=== PATIENT | male | born 1960 ===

== ENCOUNTER 2017-01-20 08:55 | Emergency (ER) | payer MEDICAID ==
[2017-01-20 09:03] VITALS: BMI 27.4
[2017-01-20 09:19] VITALS: O2SAT 98
[2017-01-20] MEDS ORDERED: Insulin Regular 100 units/ml IVP ONE ×3 (09:36→14:10)
[2017-01-20] MEDS ORDERED: Sodium Chloride 0.9% 1,000 ML IV STA ×2 (09:36→14:10)
[2017-01-20] MEDS ORDERED: Insulin Regular 100 units/ml ONE ×3 (09:40→14:49)
--- NOTE | 2017-01-20 10:02 | ED PDOC ---
HPI: General Adult Time Seen by Provider: 01/20/17 09:15 Chief Complaint (Nursing): Dizziness/Lightheaded Chief Complaint (Provider): dizzy, i think my sugar is high History Per: Patient, Manager User Interface (Indemand) History/Exam Limitations: no limitations Current Symptoms Are (Timing): Still Present Severity: Moderate Similar Symptoms Previously: + Recent Trauma: denies Additional Complaint(s): 56yo male c/o dizziness and concern his sugar is high. He does not check his glucose at home, states partially compliant w pills and insulin although doesnt know his dose. Poor historian. Denies fever, focal weakness, dysuria or headache. Past Medical History Reviewed: Historical Data, Nursing Documentation, Vital Signs Vital Signs: Last Vital Signs Temp 98 F 01/20/17 17:10 Pulse 74 01/20/17 17:10 Resp 20 01/20/17 17:10 BP 110/70 01/20/17 17:10 Pulse Ox 98 01/20/17 17:10 - Medical History PMH: Diabetes, HTN - Surgical History Surgical History: No Surg Hx - Family History Family History: States: Unknown Family Hx - Social History Current smoker - smoking cessation education provided: No Drugs: Denies - Home Medications Home Medications: Ambulatory Orders Medication Instructions Recorded Aspirin [Ecotrin] 81 mg PO DAILY 01/20/17 Canagliflozin/Metformin HCl 1 tab PO BID 01/20/17 [Invokamet 150-1,000 mg Tablet] Fenofibrate [Lofibra] 160 mg PO DAILY 01/20/17 Lisinopril [Zestril] 5 mg PO DAILY 01/20/17 Simvastatin [Simvastatin] 5 mg PO HS 01/20/17 metFORMIN [glucOPHAGE] 500 mg PO BID 01/20/17 - Allergies Allergies/Adverse Reactions: Allergies Allergy/AdvReac Type Severity Reaction Status Date / Time No Known Allergies Allergy Verified 12/05/16 12:35 Review of Systems Constitutional: Positive for: Weakness, Malaise ENT: Negative for: Ear Discharge, Throat Pain Cardiovascular: Positive for: Chest Pain, Light Headedness Respiratory: Negative for: Cough, Shortness of Breath Gastrointestinal: Negative for: Nausea, Vomiting Genitourinary Male: Negative for: Dysuria, Frequency Musculoskeletal: Negative for: Neck Pain, Shoulder Pain Skin: Negative for: Rash, Lesions, Jaundice Neurological: Negative for: Weakness, Numbness Physical Exam - Reviewed Nursing Documentation Reviewed: Yes Vital Signs Reviewed: Yes - Physical Exam Appears: Positive for: Well, Non-toxic, No Acute Distress Head Exam: Positive for: ATRAUMATIC, NORMAL INSPECTION, NORMOCEPHALIC Skin: Positive for: Normal Color, Warm, DRY Eye Exam: Positive for: EOMI, Normal appearance, PERRL ENT: Positive for: Normal ENT Inspection Neck: Positive for: Normal, Painless ROM Cardiovascular/Chest: Positive for: Regular Rate, Rhythm Respiratory: Positive for: CNT, Normal Breath Sounds Pulses-Radial (L): 2+ Pulses-Radial (R): 2+ Gastrointestinal/Abdominal: Positive for: Bowel Sounds, Soft, Tenderness (mild diffuse). Negative for: Guarding, Rebound Back: Positive for: Normal Inspection Extremity: Positive for: Normal ROM, Other (myalgias) Neurologic/Psych: Positive for: Alert, Oriented, Other (poor cognition). Negative for: Motor/Sensory Deficits, Aphasia - Laboratory Results Result Diagrams: 01/20/17 10:15 01/20/17 10:15 - ECG O2 Sat by Pulse Oximetry: 98 Medical Decision Making Medical Decision Making: glucose elevated but no signs DKA. Hyperglycemia treated in ED with multiple rounds of IVF and insulin therapy. Medications reviewed extensively w patient, in bengali, with instructions on followup and indications for return to ER. Disposition - Clinical Impression Clinical Impression: Dizziness, Hyperglycemia - Patient ED Disposition Is Patient to be Admitted: No Counseled Patient/Family Regarding: Studies Performed, Diagnosis, Need For Followup, Rx Given - Disposition Referrals: [facility] [Outside] Disposition Time: 15:00 Condition: STABLE Additional Instructions: Increase metformin to 1000mg 2x daily. See clinic for further testing. Instructions: Diabetic Hyperglycemia (ED) Print Language: KENYAN - POChrissie Present On Arrival: Poor Glycemic Control
[2017-01-20 10:34] LABS: BASO # 0.1 K/uL (0.0-0.2); BASO % 1.1 % (0.0-2.0); EOS % 15.1 % (0.0-4.0); HEMATOCRIT 39.7 % (35.0-51.0); LYMPH # 1.7 K/uL (1.0-4.3); LYMPH % 25.1 % (20.0-40.0); MEAN CELL VOLUME 93.8 fl (80.0-94.0); MEAN CORPUSCULAR HEMOGLOBIN 31.1 pg (27.0-31.0); MEAN CORPUSCULAR HGB CONC 33.2 g/dL (33.0-37.0); MEAN PLATELET VOLUME 9.2 fl (7.2-11.7); MONO # 0.6 K/uL (0.0-0.8); MONO % 8.8 % (0.0-10.0); NEUT # 3.3 K/uL (1.8-7.0); NEUT % 49.9 % (50.0-75.0); NRBC % 0.1 % (0.0-0.0); RED CELL DISTRIBUTION WIDTH 13.4 % (11.5-14.5); WHITE BLOOD COUNT 6.7 K/uL (4.8-10.8)
[2017-01-20 10:41] LABS: ALB/GLOB RATIO 1.1 (1.0-2.1); ALKALINE PHOSPHATASE 147 U/L (38-126); ALT/SGPT 36 U/L (21-72); AST/SGOT 25 U/L (17-59); BILIRUBIN,TOTAL 1.2 mg/dl (0.2-1.3); BLOOD UREA NITROGEN 14 mg/dl (9-20); CALCIUM 9.1 mg/dL (8.4-10.2); CARBON DIOXIDE 23 mmol/L (22-30); CHLORIDE 96 mmol/L (98-107); GFR AFRICAN-AMERICAN > 60; POTASSIUM 4.3 MMOL/L (3.6-5.0); SODIUM 135 mmol/l (132-148); TOTAL PROTEIN 7.4 G/DL (6.3-8.2)
[2017-01-20 10:50] LABS: GLUCOSE,RANDOM 423 mg/dL (75-110)
[2017-01-20 16:30] LABS: RBC URINE 2 /hpf (0-3); URINE BACTERIA RARE (<OCC); URINE BILIRUBIN NEGATIVE (NEGATIVE); URINE COLOR STRAW (YELLOW); URINE GLUCOSE (UA) >=500 mg/dL (Normal); URINE KETONE 80 mg/dL (NEGATIVE); URINE LEUKOCYTE ESTERASE NEG Leu/uL (Negative); URINE PROTEIN 30 mg/dL (NEGATIVE); URINE UROBILINOGEN 0.2-1.0 mg/dL (0.2-1.0); WBC URINE 1 /hpf (0-5)
[2017-01-20 16:35] LABS: URINE BLOOD NEGATIVE (NEGATIVE)
--- NOTE | 2017-01-20 17:12 | CARD ---
APPROVED REPORT EKG Measurement Heart [id number] 166P5 [id number] <Conclusion> Normal sinus rhythm Normal ECG
[2017-01-20 17:38] VITALS: BP 110/70; PULSE 74; RESP 20; TEMP 98
== END 2017-01-20 17:39 | disposition home or self-care (01) ==
LOC: H.ER 08:55
DX: R42 Dizziness and giddiness (principal); E11.65 Type 2 diabetes mellitus with hyperglycemia; I10 Essential (primary) hypertension; Z79.82 Long term (current) use of aspirin; Z79.84 Long term (current) use of oral hypoglycemic drugs

== ENCOUNTER 2017-03-09 13:38 | Emergency (ER) | payer MEDICAID ==
[2017-03-09 13:38] VITALS: BMI 27.4
[2017-03-09 14:04] VITALS: TEMP 98
[2017-03-09] MEDS ORDERED: Sodium Chloride 0.9% 1,000 ML IV STA (14:39)
--- NOTE | 2017-03-09 14:56 | ED PDOC ---
ATTENTION PHYSICIANS Hyperglycemia/Hypoglycemia Chief Complaint (Provider): High Blood Glucose History Per: Patient History/Exam Limitations: no limitations Onset/Duration Of Symptoms: Days Current Symptoms Are (Timing): Still Present Current Diabetic Medications: Insulin, Oral Medication (metformin 1000 BID) Causative (Exacerbating) Factor(s): Missed Taking Medication (for weeks) Associated Infectious Symptoms: denies: Cough, Sore Throat, Sinus Congestion, Dysuria, Urinary Urgency, Nausea, Vomiting, Diarrhea : The patient does not have any of the infectious symptoms listed except for those marked. Treatment Prior To Provider Evaluation: None Additional Complaint(s): 56 yo M w PMHx of DM2, HLD presents to ER w uncontrolled diabetes. Pt states he continues to take his Metformin and other oral medications, but has refused to take any insulin over previous few weeks because he doesn't like injections. He has no problems getting his medications, as he actually carried all of his unused insulin with him. Pt states polyuria and polydypsia, but denies any fevers/chills, n/v/d/c, headaches, recent vision changes, SOB, dyspnea, cough, abdominal pain, hematuria, dysuria, or other myalgias. <Rafael Emmanuel - Last Filed: 03/09/17 16:02> : The patient does not have any of the infectious symptoms listed except for those marked. Additional Complaint(s): No chest pains. Sent from clinic as blood sugar high. <Mina Anderson M - Last Filed: 03/09/17 18:39> Time Seen by Provider: 03/09/17 14:11 Chief Complaint (Nursing): High Blood Sugar Past Medical History Vital Signs: Last Vital Signs Temp 98.0 F 03/09/17 14:01 Pulse 70 03/09/17 14:01 Resp 16 03/09/17 14:01 BP 109/67 03/09/17 14:01 Pulse Ox 100 03/09/17 14:01 - Medical History PMH: Diabetes, HTN - Family History Family History: States: Unknown Family Hx <Rafael Emmanuel - Last Filed: 03/09/17 16:02> Vital Signs: Last Vital Signs Temp 98.0 F 03/09/17 14:01 Pulse 70 03/09/17 14:01 Resp 16 03/09/17 14:01 BP 109/67 03/09/17 14:01 Pulse Ox 100 03/09/17 16:06 <Mina Anderson M - Last Filed: 03/09/17 18:39> - Home Medications Home Medications: Ambulatory Orders Medication Instructions Recorded Aspirin [Ecotrin] 81 mg PO DAILY 03/09/17 Fenofibrate [Triglide] 160 mg PO DAILY 03/09/17 Insulin Detemir [Levemir] 15 unit SC HS 03/09/17 Liraglutide [Victoza 3-Evan] 1.8 mg SC DAILY 03/09/17 Lisinopril [Zestril] 5 mg PO DAILY 03/09/17 Metformin HCl [Glucophage] 1,000 mg PO BID 03/09/17 Simethicone [Bicarsim] 80 mg PO QID PRN 03/09/17 - Allergies Allergies/Adverse Reactions: Allergies Allergy/AdvReac Type Severity Reaction Status Date / Time No Known Allergies Allergy Verified 03/09/17 14:01 Review of Systems ROS Statement: Except As Marked, All Systems Reviewed And Found Negative (see HPI) <Rafael Emmanuel T - Last Filed: 03/09/17 16:02> Physical Exam - Physical Exam Appears: Positive for: Well, Non-toxic Head Exam: Positive for: ATRAUMATIC, NORMOCEPHALIC Skin: Positive for: Normal Color, Warm, Dry Eye Exam: Positive for: Normal appearance, EOMI Neck: Positive for: Normal, Painless ROM Cardiovascular/Chest: Positive for: Regular Rate, Rhythm. Negative for: Edema Respiratory: Positive for: Normal Breath Sounds. Negative for: Rales, Stridor, Wheezing Gastrointestinal/Abdominal: Positive for: Normal Exam, Soft. Negative for: Tenderness Back: Negative for: L CVA Tenderness, R CVA Tenderness Extremity: Positive for: Other (amputated digits on R hand). Negative for: Tenderness, Pedal Edema Neurologic/Psych: Positive for: Alert, player manager II-XII, Oriented <Rafael Emmanuel - Last Filed: 03/09/17 16:02> - Physical Exam Back: Positive for: Normal Inspection Extremity: Positive for: Other <Mina Anderson - Last Filed: 03/09/17 18:39> - Laboratory Results Result Diagrams: 03/09/17 15:10 - ECG O2 Sat by Pulse Oximetry: 100 - Progress ED Course And Treament: 56 yo M w PMHx of DM2, HLD presents to ER w uncontrolled blood sugar -CBC -CMP -VBG -Trop x1 -UA -EKG -NS 1L <Rafael Emmanuel - Last Filed: 03/09/17 16:02> - Laboratory Results Result Diagrams: 03/09/17 15:10 03/09/17 15:10 Interpretation Of Abn Labs: 404 glucose - ECG ECG: Positive for: Interpreted By Me, Viewed By Me ECG Rhythm: Positive for: Normal QRS, Normal ST Segment, Sinus Rhythm Pulse Ox Interpretation: Normal - Progress ED Course And Treament: 1653: Stable. AAOx3. Pending urine. No symptoms currently. Will give insulin. 1836: Stable. Glucose improved. Pt. advised to take his insulin. Has no symptoms. Fu with pcp. AAOx3. Tolerated po. <Mina Anderson - Last Filed: 03/09/17 18:39> Disposition - Disposition Disposition Time: 16:06 <Rafael Emmanuel - Last Filed: 03/09/17 16:02> Counseled Patient/Family Regarding: Studies Performed, Diagnosis, Need For Followup - Disposition Disposition: Routine/Home <Mina Anderson - Last Filed: 03/09/17 18:39> - Clinical Impression Clinical Impression: Hyperglycemia - Disposition Referrals: [facility] [Outside] Condition: STABLE Additional Instructions: Return if not better in 3 days. Take your insulin. Instructions: Diabetic Hyperglycemia (ED) Print Language: IRISH
[2017-03-09 15:44] LABS: BASO # 0.1 K/uL (0.0-0.2); BASO % 1.8 % (0.0-2.0); HEMATOCRIT 35.5 % (35.0-51.0); LYMPH # 1.7 K/uL (1.0-4.3); LYMPH % 28.4 % (20.0-40.0); MEAN CELL VOLUME 93.3 fl (80.0-94.0); MEAN CORPUSCULAR HEMOGLOBIN 31.2 pg (27.0-31.0); MEAN CORPUSCULAR HGB CONC 33.4 g/dL (33.0-37.0); MEAN PLATELET VOLUME 8.3 fl (7.2-11.7); MONO # 0.4 K/uL (0.0-0.8); MONO % 6.3 % (0.0-10.0); NEUT # 2.8 K/uL (1.8-7.0); NEUT % 46.5 % (50.0-75.0); RED CELL DISTRIBUTION WIDTH 12.7 % (11.5-14.5); WHITE BLOOD COUNT 5.9 K/uL (4.8-10.8)
[2017-03-09 16:00] LABS: ALB/GLOB RATIO 1.2 (1.0-2.1); ALKALINE PHOSPHATASE 197 U/L (38-126); ALT/SGPT 40 U/L (21-72); AST/SGOT 25 U/L (17-59); BILIRUBIN,TOTAL 0.9 mg/dl (0.2-1.3); BLOOD UREA NITROGEN 13 mg/dl (9-20); CARBON DIOXIDE 26 mmol/L (22-30); CHLORIDE 97 mmol/L (98-107); GFR AFRICAN-AMERICAN > 60; SODIUM 132 mmol/l (132-148); TOTAL PROTEIN 6.9 G/DL (6.3-8.2)
[2017-03-09 16:20] LABS: GLUCOSE,RANDOM 404 mg/dL (75-110)
[2017-03-09] MEDS ORDERED: Insulin Regular 100 units/ml IV STA ×2 (16:46→18:36)
[2017-03-09] MEDS ORDERED: Insulin Regular 100 units/ml ONE ×2 (17:30→18:22)
[2017-03-09] MEDS ORDERED: Insulin Regular 100 units/ml SC STA (18:26)
[2017-03-09] MEDS ORDERED: Sodium Chloride 0.9% 250 ML IV STA (18:27)
[2017-03-09 19:16] VITALS: BP 111/73; PULSE 67; RESP 20; O2SAT 98
--- NOTE | 2017-03-10 08:59 | CARD ---
APPROVED REPORT EKG Measurement Heart [id number] [id number] <Conclusion> Normal sinus rhythm Normal ECG
== END 2017-03-09 19:14 | disposition home or self-care (01) ==
LOC: H.ER 13:38
DX: E11.65 Type 2 diabetes mellitus with hyperglycemia (principal); I10 Essential (primary) hypertension; Z79.4 Long term (current) use of insulin; Z79.82 Long term (current) use of aspirin

== ENCOUNTER 2017-05-25 16:51 | Emergency (ER) | payer MEDICAID ==
[2017-05-25 16:52] VITALS: BMI 27.4
[2017-05-25 16:56] VITALS: BP 127/83; PULSE 70; RESP 16; TEMP 99.2; O2SAT 99
[2017-05-25] MEDS ORDERED: Sodium Chloride 0.9% 2,000 ML IV STA (17:05)
--- NOTE | 2017-05-25 17:14 | ED PDOC ---
HPI: General Adult Time Seen by Provider: 05/25/17 17:12 Chief Complaint (Nursing): Abnormal Labs Chief Complaint (Provider): elevated blood sugar History Per: Patient (56 y/o male h/o IDDM noncompliant x 3 days (he states he forgot to take medication) sent from clinic for evaluation of elevated blood sugar and ketones noted in urine. Patient denies any chest pain/abdominal pain/ vomiting/ etc. States he has been taking metformin 1000mg bid properly.) Past Medical History Reviewed: Historical Data, Nursing Documentation, Vital Signs Vital Signs: Last Vital Signs Temp 99.2 F 05/25/17 16:53 Pulse 70 05/25/17 16:53 Resp 16 05/25/17 16:53 BP 127/83 05/25/17 16:53 Pulse Ox 99 05/25/17 17:14 - Medical History PMH: Diabetes, HTN - Family History Family History: States: Unknown Family Hx - Home Medications Home Medications: Ambulatory Orders Medication Instructions Recorded Fenofibrate [Triglide] 160 mg PO DAILY 03/09/17 Insulin Detemir [Levemir] 10 unit SC HS 03/09/17 Lisinopril [Zestril] 5 mg PO DAILY 03/09/17 Metformin HCl [Glucophage] 1,000 mg PO BID 03/09/17 Simethicone [Bicarsim] 80 mg PO QID PRN 03/09/17 Glimepiride [amaRYL] 4 mg PO DAILY 05/25/17 - Allergies Allergies/Adverse Reactions: Allergies Allergy/AdvReac Type Severity Reaction Status Date / Time No Known Allergies Allergy Verified 05/25/17 17:01 Review of Systems ROS Statement: Except As Marked, All Systems Reviewed And Found Negative Physical Exam - Reviewed Nursing Documentation Reviewed: Yes Vital Signs Reviewed: Yes - Physical Exam Appears: Positive for: Well, Non-toxic, No Acute Distress Head Exam: Positive for: ATRAUMATIC, NORMAL INSPECTION, NORMOCEPHALIC Skin: Positive for: Normal Color, Warm, DRY Eye Exam: Positive for: EOMI, Normal appearance, PERRL ENT: Positive for: Normal ENT Inspection Neck: Positive for: Normal, Painless ROM Cardiovascular/Chest: Positive for: Regular Rate, Rhythm Respiratory: Positive for: CNT, Normal Breath Sounds Gastrointestinal/Abdominal: Positive for: Normal Exam, Bowel Sounds, Soft Back: Positive for: Normal Inspection Extremity: Positive for: Normal ROM Neurologic/Psych: Positive for: Alert, Oriented - Laboratory Results Result Diagrams: 05/25/17 17:50 05/25/17 20:07 - ECG O2 Sat by Pulse Oximetry: 99 - Progress ED Course And Treament: NS 1 liter wide open x 2 liters Repeat BS 343 INsulin 6 units iv with improvement of BS 278 Repeat chemistry with improvement of sodium to 131. Potassium noted 3.1. KDUR 60meq x 1 dose in ED Disposition - Clinical Impression Clinical Impression: Hyperglycemia - Patient ED Disposition Is Patient to be Admitted: No - Disposition Disposition: Routine/Home Disposition Time: 20:30 Condition: FAIR Instructions: Diabetic Hyperglycemia (ED) Forms: [facility] (Armenian) Print Language: [place]
[2017-05-25 17:57] LABS: VENOUS BLOOD GAS BASE EXCESS -1.1 mmol/L (0.0-2.0); VENOUS BLOOD GAS PCO2 42 mmHg (40-60); VENOUS BLOOD GAS PO2 40 mm/Hg (30-55); VENOUS BLOOD PH 7.37 (7.32-7.43)
[2017-05-25 18:10] LABS: BASO # 0.1 K/uL (0.0-0.2); BASO % 1.2 % (0.0-2.0); EOS # 0.8 K/uL (0.0-0.7); EOS % 11.5 % (0.0-4.0); HEMOGLOBIN 12.7 g/dL (12.0-18.0); LYMPH # 1.8 K/uL (1.0-4.3); LYMPH % 27.7 % (20.0-40.0); MEAN CELL VOLUME 92.9 fl (80.0-94.0); MEAN CORPUSCULAR HEMOGLOBIN 31.1 pg (27.0-31.0); MEAN CORPUSCULAR HGB CONC 33.5 g/dL (33.0-37.0); MEAN PLATELET VOLUME 9.2 fl (7.2-11.7); MONO # 0.5 K/uL (0.0-0.8); MONO % 7.2 % (0.0-10.0); NEUT # 3.5 K/uL (1.8-7.0); NEUT % 52.4 % (50.0-75.0); NRBC % 0.1 % (0.0-0.0); RBC 4.09 Mil/uL (4.40-5.90); RED CELL DISTRIBUTION WIDTH 12.4 % (11.5-14.5); WHITE BLOOD COUNT 6.7 K/uL (4.8-10.8)
[2017-05-25 18:14] LABS: BLOOD UREA NITROGEN 20 mg/dl (9-20); CALCIUM 9.1 mg/dL (8.4-10.2); GFR AFRICAN-AMERICAN > 60; GFR NON-AFRICAN AMERICAN > 60
[2017-05-25 18:37] LABS: URINE BILIRUBIN NEGATIVE (NEGATIVE); URINE BLOOD NEGATIVE (NEGATIVE); URINE CLARITY CLEAR (Clear); URINE COLOR STRAW (YELLOW); URINE GLUCOSE (UA) >=500 mg/dL (Normal); URINE LEUKOCYTE ESTERASE NEG Leu/uL (Negative); URINE NITRATE NEGATIVE (NEGATIVE); URINE PROTEIN NEGATIVE (NEGATIVE); URINE UROBILINOGEN 0.2-1.0 mg/dL (0.2-1.0)
--- NOTE | 2017-05-25 18:56 | RAD ---
PROCEDURE: CHEST RADIOGRAPH, 1 VIEW HISTORY: routine COMPARISON: None FINDINGS: LUNGS: Clear. PLEURA: No pneumothorax or pleural fluid seen. CARDIOVASCULAR: No radiographic findings to suggest acute or significant cardiovascular disease. OSSEOUS STRUCTURES: No significant abnormalities. VISUALIZED UPPER ABDOMEN: Normal. OTHER FINDINGS: None. IMPRESSION: No active disease.
[2017-05-25] MEDS ORDERED: Insulin Regular 100 units/ml IVP STA (19:27)
[2017-05-25] MEDS ORDERED: Insulin Regular 100 units/ml ONE (19:49)
[2017-05-25 20:21] LABS: BLOOD UREA NITROGEN 16 mg/dl (9-20); CALCIUM 7.8 mg/dL (8.4-10.2); GFR AFRICAN-AMERICAN > 60; GFR NON-AFRICAN AMERICAN > 60
[2017-05-25] MEDS ORDERED: Potassium Chloride 20 mEq ER Tab PO STA ×2 (20:23→20:25)
--- NOTE | 2017-05-26 10:41 | CARD ---
APPROVED REPORT EKG Measurement Heart [id number] [place] 174P24 [id number] <Conclusion> Normal sinus rhythm Normal ECG
== END 2017-05-25 21:05 | disposition home or self-care (01) ==
LOC: H.ER 16:51
DX: E11.65 Type 2 diabetes mellitus with hyperglycemia (principal); Z79.4 Long term (current) use of insulin; Z91.19 Patient's noncompliance with other medical treatment and regimen; I10 Essential (primary) hypertension